=== PATIENT | male | born 1975 | race Caucasian/White ===

== ENCOUNTER 2020-08-30 | Emergency (ER) | payer OTHER ==
[2020-08-30 03:04] LABS: BILIRUBIN NEGATIVE (NEGATIVE); BLOOD NEGATIVE Ery/uL (NEGATIVE); CLARITY CLEAR (CLEAR); COLOR YELLOW (YELLOW); GLUCOSE (U) NORMAL (NORMAL); LEUKOCYTES NEGATIVE Leu/uL (NEGATIVE); NITRITE NEGATIVE (NEGATIVE); PROTEIN NEGATIVE (NEGATIVE)
[2020-08-30] MEDS ORDERED: PERCOCET 7.5/321 TAB PO (03:55)
[2020-08-30] MEDS ORDERED: IBUPROFEN800 MG PO (03:55)
[2020-08-30] MEDS ORDERED: ROBAXIN750 MG PO (03:55)
[2020-08-30] MEDS ORDERED: MEDROL 4MG DOSEP4 MG PO (03:55)
== END 2020-08-30 05:05 | disposition home or self-care (01) ==
LOC: FER
PROVIDERS: Emergency Medicine Emergency Medical Services
DX: M51.17 Intervertebral disc disorders with radiculopathy, lumbosacral region (principal); R11.2 Nausea with vomiting, unspecified; Z87.81 Personal history of (healed) traumatic fracture; Z88.5 Allergy status to narcotic agent
CPT/HCPCS: 72128; 72131; 81003; 96372; J1100; J1170; J1885

== ENCOUNTER 2020-09-18 22:21 | Emergency (ER) | payer OTHER ==
[~2020-09-18 22:21] MED LIST: IBUPROFEN800 MG PO; MEDROL 4MG DOSEP4 MG PO; PERCOCET 7.5/321 TAB PO; ROBAXIN750 MG PO
== END 2020-09-18 23:28 | disposition home or self-care (01) ==
LOC: FER 22:21
DX: G89.29 Other chronic pain (principal); M51.9 Unspecified thoracic, thoracolumbar and lumbosacral intervertebral disc disorder; F17.200 Nicotine dependence, unspecified, uncomplicated; Z87.39 Personal history of other diseases of the musculoskeletal system and connective tissue
CPT/HCPCS: 99283; J1885

== ENCOUNTER 2021-03-22 20:26 | Emergency (ER) | payer OTHER ==
[2021-03-22 21:41] LABS: BASOPHIL 0.3 % (0-2); EOSINOPHIL 2.4 % (0-5); HCT 40.6 % (42.0-52.0); HGB 13.9 g/dl (13.2-18.0); LYMPHOCYTE 54.3 % (15-48); MCH 32.4 pg (25.0-31.0); MCHC 34.2 g/dL (32.0-36.0); MCV 94.6 fL (78.0-100.0); MONOCYTE 9.2 % (0-12); MPV 10.6 fL (6.0-9.5); NEUTROPHIL 33.6 % (41-80); NRBC 0; PLT 192 K/uL (150-400); RBC 4.29 M/uL (4.70-6.00); RDW 14.3 % (11.5-14.0); WBC 9.2 K/uL (4.0-10.5)
[2021-03-22 21:46] LABS: AMPHETAMINES NEGATIVE (NEGATIVE); BARBITURATES NEGATIVE (NEGATIVE); ECSTASY (MDMA) NEGATIVE (NEGATIVE); MARIJUANA (THC) NEGATIVE (NEGATIVE); METHADONE NEGATIVE (NEGATIVE); OPIATES NEGATIVE (NEGATIVE); OXYCODONE NEGATIVE (NEGATIVE)
[2021-03-22 22:25] LABS: ACETAMINOPHEN (TYLENOL) < 2.0 ug/mL (10.0-30.0); ALBUMIN 4.1 g/dL (3.4-5.0); ALKALINE PHOSHATASE 124 U/L (46-116); ALT 34 U/L (16-63); AST 29 U/L (15-37); BILIRUBIN - TOTAL 0.4 mg/dL (0.2-1.0); BUN 10 mg/dL (7-18); BUN/CREAT RATIO (CALC) 11.1 RATIO; CHLORIDE 103 mmol/L (98-107); CO2 (BICARBONATE) 28 mmol/L (21-32); GLUCOSE 101 mg/dL (74-106); POTASSIUM 3.4 mmol/L (3.5-5.1); TOTAL PROTEIN 7.1 g/dL (6.4-8.2)
== END 2021-03-23 04:10 | disposition home or self-care (01) ==
LOC: FER 20:26
PROVIDERS: Emergency Medicine
DX: F10.129 Alcohol abuse with intoxication, unspecified (principal); R41.82 Altered mental status, unspecified; I10 Essential (primary) hypertension; F17.210 Nicotine dependence, cigarettes, uncomplicated; Y90.8 Blood alcohol level of 240 mg/100 ml or more; Z88.5 Allergy status to narcotic agent; Z91.030 Bee allergy status
CPT/HCPCS: 36415; 80053; 80305; 85025; 93005; G0480